=== PATIENT | female | born 1970 | race African-American/Black ===

== ENCOUNTER 2018-09-18 23:41 | Emergency (ER) | payer MEDICARE, MEDICAID ==
[~2018-09-18] VITALS: Ht 167.6 cm; Wt 70.0 kg
[~2018-09-18 23:41] MED LIST: BUPR100T6; CARB200T PO; CARB200T3; CITA40TA12; CLON0.5T20; HYDR25CA94; PHEN-583; TRAZ150T18
--- NOTE | 2018-09-18 23:52 | NUR ---
Pt wheeled to room from lobby, with triage tech.
--- NOTE | 2018-09-19 00:01 | NUR ---
Dr. Canales at bedside to evaluate pt.
[2018-09-19 00:23] LABS: BASOPHILS # (AUTO) 0.03 x10^3/uL (0-0.1); BASOPHILS % (AUTO) 1 % (0-1); EOSINOPHILS # (AUTO) 0.03 x10^3/uL (0-0.4); EOSINOPHILS % (AUTO) 0 % (1-7); LYMPHOCYTES # (AUTO) 0.66 x10^3/uL (1-3.4); LYMPHOCYTES % (AUTO) 9 % (22-44); MD NO; MEAN CORPUSCULAR HEMOGLOBIN 31.5 pg (27.0-34.8); MEAN CORPUSCULAR HGB CONC 34.3 g/dL (32.4-35.8); MEAN CORPUSCULAR VOLUME 91.9 fL (80-100); MEAN PLATELET VOLUME 8.7 fL (7.4-10.4); MONOCYTES # (AUTO) 0.94 x10^3/uL (0.2-0.8); MONOCYTES % (AUTO) 12 % (2-9); NEUTROPHILS # (AUTO) 5.99 x10^3/uL (1.8-6.8); NEUTROPHILS % (AUTO) 78 % (42-75); PLATELET COUNT 280 x10^3/uL (130-400); RED BLOOD COUNT 4.22 x10^6/uL (3.82-5.3); RED CELL DISTRIBUTION WIDTH 14.4 % (9.6-15.2)
[2018-09-19] MEDS ORDERED: ACETAMINOPHEN 500 MG TABLET ONE (00:28)
[2018-09-19] MEDS ORDERED: ACETAMINOPHEN 500 MG TABLET PO ONE (00:30)
--- NOTE | 2018-09-19 00:30 | NUR ---
Pt medicated per MAR.
[2018-09-19 00:36] LABS: ALBUMIN 3.7 g/dL (3.4-5.0); ANION GAP 6 mmol/L (5-15); CALCIUM 8.2 mg/dL (8.5-10.1); CHLORIDE 105 mmol/L (98-107); CREATININE 0.84 mg/dL (0.55-1.02)
--- NOTE | 2018-09-19 01:11 | NUR ---
Pt sleeping on gurney. NAD noted.
[2018-09-19 01:47] VITALS: BP 116/68
--- NOTE | 2018-09-19 01:51 | NUR ---
Patient/Caregiver given discharge instructions and they have confirmed that they understand the instructions. Patient ambulatory with steady gait.
== END 2018-09-19 01:49 | disposition home or self-care (01) ==
LOC: ED 23:59
DX: R05 Cough (principal); J00 Acute nasopharyngitis [common cold]; F31.9 Bipolar disorder, unspecified; F17.200 Nicotine dependence, unspecified, uncomplicated
CPT/HCPCS: 36415; 71045; 80048; 82040; 85025; 93005; 99284

== ENCOUNTER 2019-09-29 16:58 | Emergency (ER) | payer MEDICAID, MEDICARE ==
[~2019-09-29] VITALS: Ht 167.6 cm; Wt 61.9 kg
[2019-09-29 17:00] VITALS: BP 143/101
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
== END 2019-09-29 17:58 ==
LOC: ED 17:32
DX: R35.0 Frequency of micturition (principal); Z53.21 Procedure and treatment not carried out due to patient leaving prior to being seen by health care provider

== ENCOUNTER 2020-03-09 17:20 | Emergency (ER) | payer MEDICARE ==
[~2020-03-09] VITALS: Ht 165.1 cm; Wt 69.5 kg
[2020-03-09 17:31] VITALS: BP 163/99
[2020-03-09] MEDS ORDERED: LIDOCAINE 1%, 10ML INFIL ONE (18:00)
[2020-03-09] MEDS ORDERED: DIPH,PERTUSS(ACELL),TET VAC/PF 0.5 ML IM-VACC ONE ×2 (18:00→19:23)
--- NOTE | 2020-03-09 18:26 | NUR ---
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
--- NOTE | 2020-03-09 18:51 | NUR ---
pt to 11 from lobby
== END 2020-03-09 19:56 | disposition home or self-care (01) ==
LOC: ED 19:45
DX: S01.01XA Laceration without foreign body of scalp, initial encounter (principal); S09.90XA Unspecified injury of head, initial encounter; F17.200 Nicotine dependence, unspecified, uncomplicated; X58.XXXA Exposure to other specified factors, initial encounter; Y93.89 Activity, other specified; Y92.89 Other specified places as the place of occurrence of the external cause; Y99.8 Other external cause status
CPT/HCPCS: 12002; 90471; 90715; 99283

== ENCOUNTER 2021-01-11 00:51 | Emergency (ER) | payer MEDICARE, MEDICAID ==
[~2021-01-11] VITALS: Ht 167.6 cm; Wt 65.0 kg
[2021-01-11 01:00] VITALS: BP 138/87
--- NOTE | 2021-01-11 01:04 | NUR ---
Patient BIBA c/o low back pain due to sciatica. Patient states she usually goes to [facility] and gets "a shot that is similar to ibuprofen." Patient is ambulatory. Patient is in NAD. Respirations even and unlabored.
[2021-01-11] MEDS ORDERED: KETOROLAC 30 MG/1 ML ONE (01:16)
[2021-01-11] MEDS ORDERED: ACETAMINOPHEN 325 MG TABLET ONE (01:17)
[2021-01-11] MEDS ORDERED: KETOROLAC 15 MG/1ML IM ONE (01:30)
[2021-01-11] MEDS ORDERED: ACETAMINOPHEN 325 MG TABLET PO ONE (01:30)
[2021-01-11 01:46] LABS: AMPHETAMINE SCREEN, URINE Positive (Negative); BARBITURATE SCREEN, URINE Negative (Negative); BENZODIAZEPINE SCREEN, URINE Negative (Negative); CANNABINOID SCREEN, URINE Positive (Negative); COCAINE SCREEN, URINE Negative (Negative); METHADONE SCREEN, URINE Negative (Negative); MICROSCOPIC INDICATED; OPIATE SCREEN, URINE Negative (Negative)
--- NOTE | 2021-01-11 01:47 | NUR ---
pt medicated, and ua sent to lab. pt resting on [facility].
--- NOTE | 2021-01-11 02:58 | NUR ---
Patient given discharge instructions and they have confirmed that they understand the instructions. Patient ambulatory with steady gait.
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
== END 2021-01-11 03:25 | disposition home or self-care (01) ==
LOC: ED 03:20
DX: S39.012A Strain of muscle, fascia and tendon of lower back, initial encounter (principal); F15.10 Other stimulant abuse, uncomplicated; F17.210 Nicotine dependence, cigarettes, uncomplicated; X58.XXXA Exposure to other specified factors, initial encounter; Y93.89 Activity, other specified; Y92.89 Other specified places as the place of occurrence of the external cause; Y99.8 Other external cause status
CPT/HCPCS: 80307; 81001; 96372; 99283; 99406; J1885